=== PATIENT | female | born 1990 | race African-American/Black ===

== ENCOUNTER 2021-01-07 20:48 | Inpatient (IN) ==
[2021-01-07] MEDS ORDERED: LACTATED RINGERS 1,000 ML IV ONE (21:51)
[2021-01-07] MEDS ORDERED: ONDANSETRON 4 MG/2 ML VIAL IV PRN (21:51)
[2021-01-07] MEDS ORDERED: PROMETHAZINE 25 MG/1 ML VIAL IM ONE (21:53)
[2021-01-07] MEDS ORDERED: ONDANSETRON 4 MG/2 ML VIAL IV ONE (21:53)
[2021-01-07] MEDS ORDERED: ePHEDrine 50 MG/ML VIAL IV PRN (21:53)
[2021-01-07] MEDS ORDERED: CITRIC ACID/SODIUM CITRATE 30 ML UDCUP PO ONE (21:53)
[2021-01-07] MEDS ORDERED: NALOXONE 0.4 MG/ML VIAL IV PRN (21:53)
[2021-01-07] MEDS ORDERED: hydrOXYzine HCL 25 MG/1 ML VIAL IM PRN (21:53)
[2021-01-07] MEDS ORDERED: diphenhydrAMINE 50 MG/1 ML VIAL IV PRN ×2 (21:53)
[2021-01-07] MEDS ORDERED: FAMOTIDINE 20 MG/2 ML VIAL IV ONE (21:53)
[2021-01-07] MEDS ORDERED: fentaNYL 2 MCG/ROPIV 0.2% EPID 100 ML EPIDURAL SCH (22:00)
[2021-01-07] MEDS ORDERED: LACTATED RINGERS 1,000 ML IV SCH (22:00)
[2021-01-07 22:26] LABS: Basophils # 0.1 10*3/uL (0.0-0.2); Basophils % 0.4 % (0.0-0.8); Eosinophils # 0.2 10*3/uL (0.0-0.87); Eosinophils % 1.6 % (0.00-10.9); Hematocrit 32.4 VOL% (35.7-47.0); Hemoglobin 9.9 GM/DL (12.0-16.0); Immature Granulocytes % 0.9 %; Lymphocytes # 2.5 10*3/uL (1.4-4.0); Lymphocytes % 22.6 % (21.3-54.2); Mean Corpuscular HGB Conc 30.6 GM/DL (32-36); Mean Platelet Volume 13.3 FL (9.6-12.0); Monocytes % 7.8 % (1.7-12.7); Neutrophils % 66.7 % (38.7-73.9); Platelet Count 211 T/CUMM (130-400); Red Blood Count 3.68 MC/CUMM (3.8-5.5); Red Cell Distribution Width 14.6 % (9.3-17.3); White Blood Count 11.2 T/CUMM (4-12)
[2021-01-07 22:50] LABS: Alanine Aminotransferase 15 U/L (13-56); Albumin 2.7 G/DL (3.4-5.0); Alkaline Phosphatase 156 U/L (45-117); Aspartate Amino Transferase 16 U/L (0-37); Bilirubin,Total < 0.39 MG/DL (0.20-1.00); Blood Urea Nitrogen 8 MG/DL (7-18); Carbon Dioxide 22 MMOL/L (21-32); Estimated Glom Filtration Rate 163 ML/MIN; Glucose 78 MG/DL (74-106); Osmolality,Calculated 271.7 MOS/KG (273-304); Potassium 3.7 MMOL/L (3.5-5.1); Sodium 138 MMOL/L (136-145); Total Protein 6.4 G/DL (6.4-8.2)
[2021-01-08] MEDS ORDERED: AMPICILLIN INJ 2,000 MG in SODIUM CHLORIDE 0.9% 100 ML IV ONE
[2021-01-08 01:08] LABS: Bilirubin,Urine Negative (Negative); Blood, Urine Negative (Negative); Glucose,Urine (UA) Negative (Negative); Ketones,Urine 20 mg/dL (Negative); Mucus,Urine Occasional /LPF (Occasional); Nitrite,Urine Negative (Negative); Protein,Urine Negative; RBC,Urine 1 /HPF (0-4); Squamous Epithelial Cell,Urine Occasional /HPF (0-10); Urine Appearance CLEAR (Clear); Urine Color Straw (Yellow); Urine Specific Gravity 1.009 (1.001-1.035); Urine Urobilinogen < 2.0 EU/DL (0.2-1.0)
[2021-01-08] MEDS ORDERED: AMPICILLIN INJ 1,000 MG in SODIUM CHLORIDE 0.9% 100 ML IV SCH (04:00)
[2021-01-08] MEDS ORDERED: ceFAZolin 2,000 MG/50 ML DUPLEX IV ONE (07:24)
[2021-01-08] MEDS ORDERED: CITRIC ACID/SODIUM CITRATE 30 ML UDCUP PO ONE (07:24)
[2021-01-08] MEDS ORDERED: FAMOTIDINE 20 MG/2 ML VIAL IV ONE (07:24)
[2021-01-08] MEDS ORDERED: OXYTOCIN 10 UNIT/ML VIAL IM ONE ×2 (07:26→08:00)
[2021-01-08] MEDS ORDERED: OXYTOCIN/LR 30 UNIT/1,000 ML BAG IV ONE (07:26)
[2021-01-08] MEDS ORDERED: miSOPROStoL 200 MCG TABLET ONE (07:30)
[2021-01-08] MEDS ORDERED: METHYLERGONOVINE 0.2 MG/1 ML AMP ONE (07:30)
[2021-01-08] MEDS ORDERED: CARBOPROST TROMETHAMINE 250 MCG/ML AMP IM ONE (07:31)
[2021-01-08] MEDS ORDERED: LIDOCAINE MPF 2% /EPI 20 ML VIAL ONE (07:41)
[2021-01-08] MEDS ORDERED: fentaNYL 100 MCG/2 ML VIAL ONE (08:18)
[2021-01-08] MEDS ORDERED: ONDANSETRON 4 MG/2 ML VIAL ONE (08:45)
[2021-01-08] MEDS ORDERED: MIDAZOLAM 2 MG/2 ML VIAL ONE (08:53)
[2021-01-08] MEDS ORDERED: KETOROLAC 30 MG/1 ML VIAL ONE (09:01)
[2021-01-08 09:06] LABS: Cord Arterial Blood HCO3 24.6 MMOL/L
[2021-01-08 09:09] LABS: Cord Venous Blood HCO3 23.7 MMOL/L; Cord Venous Blood PO2 28.4 MMHG
[2021-01-08] MEDS ORDERED: ACETAMINOPHEN 325 MG TABLET PO PRN (09:38)
[2021-01-08] MEDS ORDERED: ONDANSETRON 4 MG/2 ML VIAL IV PRN (09:38)
[2021-01-08] MEDS ORDERED: SIMETHICONE CHEW 80 MG TABLET PO PRN (09:38)
[2021-01-08] MEDS ORDERED: RHO(D) IMMUNE GLOBULIN 300 MCG SYRINGE IM ONE (09:38)
[2021-01-08] MEDS ORDERED: MAGNESIUM HYDROXIDE SUSP 30 ML UDCUP PO PRN (09:38)
[2021-01-08] MEDS ORDERED: OXYTOCIN/LR 20 UNIT/1,000 ML BAG IV ONE (09:38)
[2021-01-08] MEDS: LACTATED RINGERS 1,000 ML IV SCH ×2 (14:39→22:33)
[2021-01-08] MEDS: ACETAMINOPHEN 500 MG TABLET PO SCH ×2 (14:54→20:37)
[2021-01-08] MEDS: KETOROLAC 30 MG/1 ML VIAL IV SCH ×2 (14:54→20:38)
[2021-01-08 16:44] LABS: Basophils % 0.3 % (0.0-0.8); Eosinophils % 0.3 % (0.00-10.9); Hematocrit 28.8 VOL% (35.7-47.0); Hemoglobin 8.8 GM/DL (12.0-16.0); Immature Granulocytes % 1.1 %; Immature Granulocytes Absolute 0.15 #; Lymphocytes # 1.7 10*3/uL (1.4-4.0); Lymphocytes % 13.2 % (21.3-54.2); Mean Corpuscular HGB Conc 30.6 GM/DL (32-36); Mean Corpuscular Volume 88.1 FL (87-102); Mean Platelet Volume 13.4 FL (9.6-12.0); Monocytes % 5.3 % (1.7-12.7); Neutrophils % 79.8 % (38.7-73.9); Platelet Count 168 T/CUMM (130-400); Red Blood Count 3.27 MC/CUMM (3.8-5.5); Red Cell Distribution Width 14.7 % (9.3-17.3); White Blood Count 13.1 T/CUMM (4-12)
[2021-01-08] MEDS: IBUPROFEN 800 MG TABLET PO PRN (19:09)
[2021-01-08] MEDS: FERROUS SULFATE 325 MG TABLET PO SCH (20:37)
[2021-01-08] MEDS: DOCUSATE SODIUM 100 MG CAPSULE PO SCH (20:37)
[2021-01-09] MEDS: ACETAMINOPHEN 500 MG TABLET PO SCH (03:20)
[2021-01-09] MEDS: KETOROLAC 30 MG/1 ML VIAL IV SCH (03:22)
[2021-01-09 06:03] LABS: Basophils # 0.1 10*3/uL (0.0-0.2); Basophils % 0.5 % (0.0-0.8); Eosinophils # 0.1 10*3/uL (0.0-0.87); Eosinophils % 0.8 % (0.00-10.9); Hematocrit 28.3 VOL% (35.7-47.0); Hemoglobin 8.6 GM/DL (12.0-16.0); Immature Granulocytes % 1.4 %; Immature Granulocytes Absolute 0.15 #; Lymphocytes # 1.7 10*3/uL (1.4-4.0); Lymphocytes % 15.1 % (21.3-54.2); Mean Corpuscular HGB Conc 30.4 GM/DL (32-36); Mean Corpuscular Volume 88.7 FL (87-102); Monocytes % 6.9 % (1.7-12.7); Neutrophils % 75.3 % (38.7-73.9); Platelet Count 155 T/CUMM (130-400); Red Blood Count 3.19 MC/CUMM (3.8-5.5); Red Cell Distribution Width 14.9 % (9.3-17.3)
[2021-01-09] MEDS: FERROUS SULFATE 325 MG TABLET PO SCH ×2 (10:16→20:54)
[2021-01-09] MEDS: MULTIVITAMIN (PRENATAL) TABLET PO SCH (10:16)
[2021-01-09] MEDS: DOCUSATE SODIUM 100 MG CAPSULE PO SCH ×2 (10:16→20:54)
[2021-01-09] MEDS: METOCLOPRAMIDE 10 MG TABLET PO SCH ×2 (10:16→19:02)
[2021-01-09] MEDS: IBUPROFEN 800 MG TABLET PO PRN ×2 (10:28→20:54)
[2021-01-10] MEDS: IBUPROFEN 800 MG TABLET PO PRN (04:52)
[2021-01-10] MEDS: METOCLOPRAMIDE 10 MG TABLET PO SCH (04:54)
[2021-01-10] MEDS: FERROUS SULFATE 325 MG TABLET PO SCH (08:40)
[2021-01-10] MEDS: MULTIVITAMIN (PRENATAL) TABLET PO SCH (08:40)
[2021-01-10] MEDS: DOCUSATE SODIUM 100 MG CAPSULE PO SCH (08:40)
[2021-01-10 09:31] VITALS: BP 130/89
[2021-01-10] MEDS ORDERED: DIPH/TET/ACEL PERT BOOSTER VACCINE 0.5 ML VIAL IM ONE (10:15)
== END 2021-01-10 11:35 | disposition home or self-care (01) | DRG 788 ==
LOC: N.LDOUT 20:48 → N.LD 20:58 → N.OB 01-08 12:35
PROVIDERS: ADMIT Obstetrics & Gynecology; ATTEND Obstetrics & Gynecology
PROC: LDCSECT (ICD-10-PCS; 2021-01-08 08:00)